=== PATIENT | male | born 1970 | race Caucasian/White ===

== ENCOUNTER 2018-02-26 16:35 | Emergency (ER) | payer MEDICAID, OTHER ==
--- NOTE | 2018-02-26 16:51 | ER Report ---
History and Physical Time Seen By MD: 16:48 Hx. of Stated Complaint: PATIENT REPORTS AN AURA IN HIS RIGHT FIELD OF VISION AND SOME PRESSURE IN HIS HEAD HPI/ROS CHIEF COMPLAINT: Visual changes in right eye HISTORY OF PRESENT ILLNESS: This is a 47-year-old male who presents to the emergency department for right eye vision changes. 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 Does have a mild headache on the right side, not the worst headache he's ever had. He denies nausea or vomiting. No chest pain or shortness breath. No fevers. It is not painful to chew or drink. He does have some photophobia to the right eye. REVIEW OF SYSTEMS: Constitutional: No fever, no chills. Eyes: As above. ENT: No sore throat. Cardiovascular: No chest pain, no palpitations. Respiratory: No cough, no shortness of breath. Gastrointestinal: No abdominal pain, no vomiting. Genitourinary: No hematuria. Musculoskeletal: No back pain. Skin: No rashes. Neurological: As above. Allergies: Coded Allergies: No Known Drug Allergies (Unverified , 02/26/18) Home Meds No Active Prescriptions or Reported Meds Past Medical/Surgical History The patient has a past medical and surgical history of hypertension, not controlled by medications, intermittent GERD. Reviewed Nurses Notes: Yes Hx Substance Use Disorder: No Hx Alcohol Use: No Constitutional Vital Sign - Last 24 Hours 02/26/18 02/26/18 02/26/18 02/26/18 16:38 16:40 16:46 17:29 Temp 97.7 Pulse 73 Resp 24 B/P (MAP) 172/106 (128) 172/106 150/96 (114) 154/106 (122) Pulse Ox 91 O2 Delivery Room Air Physical Exam General Appearance: The patient is alert, has no immediate need for airway protection and no signs of toxicity. Eyes: 3mm Pupils equal, round, reactive, no pallor or injection. EOMs intact, no nystagmus. ENT, Mouth: Mucous membranes are moist. Respiratory: There are no retractions, lungs are clear to auscultation. Cardiovascular: Regular rate and rhythm, no murmurs, clicks or rubs. Gastrointestinal: Abdomen is soft and non tender, no masses, bowel sounds normal. Neurological: Alert and oriented 4. Moving all extremity. Following. No focal neuro deficits. Equal sensation in the face, arms and lower extremities. No pronator drift. No lower extremity deficits. Skin: Warm and dry, no rashes. Musculoskeletal: Neck is supple non tender. Extremities are nontender, nonswollen and have full range of motion. DIFFERENTIAL DIAGNOSIS: After history and physical exam differential diagnosis was considered for headache including but not limited to subarachnoid hemorrhage, migraine headache, ocular migraine, tension headache and infectious causes such as meningitis, pharyngitis and sinusitis. Medical Decision Making ED Course/Re-evaluation ED Course The patient was admitted to room. His general physical obtained. Differential diagnoses were considered. After examination the patient did determine that the patient likely has an ocular migraine, the patient's vision is back to baseline according the patient. He a very mild headache on the right which is resolving. Denies having the worst headache of his life, denies blurred vision or losing vision in the right eye. The patient had no other questions or concerns at this time and was discharged home. We did discuss imaging and elected not to at this time. The patient was in agreement with this plan of care. Patient was also encouraged to follow up in the nearest emergency department while he's traveling should he have any other changes or any other concerns. Decision to Disposition Date: Feb 26, 2018 Decision to Disposition Time: 17:12 Depart Departure Latest Vital Signs Vital Signs Date Time Temp Pulse Resp B/P (MAP) Pulse Ox O2 Delivery O2 Flow Rate FiO2 02/26/18 17:29 154/106 (122) 02/26/18 16:40 97.7 73 24 91 Room Air Impression: Primary Impression: Ocular migraine Condition: Improved Disposition: HOME OR SELF-CARE New Scripts No Active Prescriptions or Reported Meds Patient Instructions: Ocular Migraine (ED) Additional Instructions: I believe you had an Ocular migraine. You can take Ibuprofen or Tylenol as needed for pain. If you develop any other concerning symptoms, please follow up in the nearest emergency department. Drink plenty of fluids. Get plenty of rest. Return to the [facility] for any other concerns or worsening symptoms. HARRISON BRISENO CEO-BC Feb 26, 2018 16:51
[2018-02-26 17:29] VITALS: BP 154/106
== END 2018-02-26 17:34 | disposition home or self-care (01) ==
LOC: ER 16:48
DX: G43.809 Other migraine, not intractable, without status migrainosus (principal)
CPT/HCPCS: 99281